=== PATIENT | male | born 1990 | race Caucasian/White ===

== ENCOUNTER → 2023-12-28 07:26 | Outpatient (REF) | payer OTHER, SELFPAY | LOC: RAD 07:26 | PROVIDERS: ATTENDING PHYSICIAN Physician Assistant Medical | DX: R35.0 Frequency of micturition (principal) | CPT/HCPCS: 74018 ==

== ENCOUNTER → 2024-11-01 14:40 | Outpatient (REF) | payer OTHER, SELFPAY | LOC: EMG 14:40 | PROVIDERS: ATTENDING PHYSICIAN Orthopaedic Surgery; FAMILY PHYSICIAN Physician Assistant Medical | DX: R20.0 Anesthesia of skin (principal) | CPT/HCPCS: 95886; 95911 ==